=== PATIENT | female | born 1980 | race Two or more races ===

== ENCOUNTER → 2017-09-02 | Emergency (ER) | payer OTHER ==
[~2017-09-02] VITALS: Ht 165.1 cm; Wt 127.0 kg
[~2017-09-02] MED LIST: LOSARTAN-HCTZ1 EAC2; METFORMIN HYDRO25 GM; SINGULAIR4 M1
== END | disposition home or self-care (01) ==
LOC: ER 18:38
DX: R10.2 Pelvic and perineal pain (principal)